=== PATIENT | female | born 1960 | race Caucasian/White ===

== ENCOUNTER 2025-08-12 08:51 | Day surgery (SDC) | payer OTHER, SELFPAY ==
[2025-05-10 11:04] VITALS: BMI 21.3
[2025-08-12 09:09] VITALS: BP 113/81; PULSE 78; RESP 18; TEMP 36.6; O2SAT 100
--- OUTSIDE RECORDS SUMMARY | 2025-08-12 09:13 | XMS_ITS | Clinical Summary ---
Author Organization [facility] Clinical [facility] Address [address] [place] [id number] Care Team Providers Care Veneer Marker Name Role Phone Ann Celeste MD Primary Care Provider + Surgical History Surgery Date Site/Laterality Comments LA DELIVERY ONLY Section - (Added by Conv) Family History Medical History Relation Name Comments Hypertension Father Hypertension - (Added by Conv) Breast cancer Mother Breast Cancer - (Added by Conv) Colon cancer Mother Family history of colon cancer - (Added by Conv) Hypertension Mother Hypertension - (Added by Conv) Relation Name Status Comments Father Mother Social History Tobacco Use Types Packs/Day Years Used Date Smoking Tobacco: Never Comments No Sex and Gender Information Value Date Recorded Sex Assigned at Not on file 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 Gender Identity Not on file Sexual Orientation Not on file Obstetrics History Para Term AB IAB SAB Ectopic Multiple Livin g Live Births 3 3 3 Date Outcome GA Total Labor Labor/2nd/3rd Weight Sex Type Anes PTL Christina A1 A5 Name Clin Term Term Term Last Filed Vital Signs Vital Sign Reading Time Taken Comments Blood Pressure 120/70 02/15/2017 1:18 PM CDT Pulse 60 02/15/2017 1:18 PM CDT Temperature - - Respiratory Rate - - Oxygen Saturation 99% 02/15/2017 1:18 PM CDT Inhaled Oxygen Concentration - - Weight 55.3 kg (122 lb) 04/19/2025 7:30 AM CDT Height 165.1 cm (5' 5) 04/19/2025 7:30 AM CDT Body Mass Index 20.3 04/19/2025 7:30 AM CDT Plan of Treatment Health Maintenance Due Date Last Done Comments Cervical Cancer Screening 1962 Depression Screening 1962 Hepatitis C Screening 1962 Hepatitis B Screening 1980 Regular Well Visit/Exam 18-64 1980 Zoster Vaccine (1 of 2) 2012 DTaP/Tdap/Td Vaccine (2 - Td or Tdap) 08/08/2022 08/08/2012 Colon Cancer Screening-Colonoscopy 07/30/2023 07/30/2013 Covid-19 Vaccine (3 - season) 2025 04/06/2021, 03/16/2021 Influenza Vaccine (#1) 2025 Breast Cancer Screening-Mammogram 04/19/2026 04/19/2025, 11/30/2023, 04/26/2022, Additional history exists Colon Cancer Screening-CT Colonography Discontinued 07/30/2013 Colon Cancer Screening-DNA Stool Discontinued 07/30/2013 Colon Cancer Screening-FIT Discontinued 07/30/2013 Colon Cancer Screening-Sigmoidoscopy Discontinued 07/30/2013 Pneumococcal vaccine <65 Aged Out No longer eligible based on patient's age to complete this topic Procedures Procedure Name Priority Date/Time Associated Diagnosis Comments SCREENING MAMMOGRAM BILATERAL W LEONEL Schedule Routine, Read Routine (OP Routine) 04/19/2025 7:45 AM CDT Screening mammogram, encounter for COLONOSCOPY REPORT 07/30/2013 from Last 3 Months or Most Recently Relevant to Health Maintenance Results * Screening Mammogram Bilateral W Leonel (04/19/2025 7:45 AM CDT) Anatomical Region Laterality Modality Breast Bilateral Mammography Impressions 04/19/2025 8:21 AM CDT Bilateral No evidence of malignancy in either breast. OVERALL BI-RADS FINAL ASSESSMENT: 1 - Negative RECOMMENDATION: Recommend bilateral annual screening mammography. Narrative 04/19/2025 8:21 AM CDT EXAMINATION: Screening Mammogram Bilateral W Leonel: 04/19/2025 COMPARISON: Relevant prior studies available at the time of interpretation were reviewed, including the most recent mammogram on: 11/30/2023. TECHNIQUE: Mammography was performed with 2D and digital breast tomosynthesis (DBT) images. CAD was utilized. BREAST PARENCHYMAL COMPOSITION: The breasts are heterogeneously dense, which may obscure small masses. FINDINGS: Bilateral There is no suspicious mass, calcification, or architectural distortion in either breast. us Self Screening Mammogram IMG MAMMO PROCEDURES Fi nal Result * COLONOSCOPY REPORT (07/30/2013) Anatomical Region Laterality Modality Other Narrative 07/30/2013 Ordered by an unspecified provider. Historical Provider MD GILL PROCEDURE ORDERABLES F inal Result from Last 3 Months or Most Recently Relevant to Health Maintenance Insurance [facility] EPO [facility] CHOICE PLUS Xylo ACCESS OOS Member Subscriber Plan / Payer (Ef fective 2018-Present) Name:Vianey Zapata Relation to Subscriber:Spouse Name:WILLIAM ZAPATA Geraldine Date of :1900 (Home) Address: [address] [place] [address] Payer ID:[id number] (NAIC) Type:[employer] Address: [address] CHOICE PLUS BLUE ACCESS OOS Care Teams Veneer Marker Relationship Specialty Start Date End Date Ann Celeste MD [address] [facility] [address] [place] [address] PCP - General Gynecology 11/30/23
--- OUTSIDE RECORDS SUMMARY | 2025-08-12 09:13 | XMS_ITS | Encounter Summary ---
Author Organization [facility] Address 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
--- OUTSIDE RECORDS SUMMARY | 2025-08-12 09:13 | XMS_ITS | Clinical Summary ---
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 Gender Identity Not on file Sexual Orientation Not on file Plan of Treatment Health Maintenance Due Date Last Done Comments Hepatitis C Virus (HCV) Screening 1962 Pap Smear 1983 Cervical Cancer Screening (CCS) 1992 HPV/Cotest 1992 Cologuard 2007 Colonoscopy 2007 Colorectal Cancer Screening 2007 Immunochemical Fecal Occult Blood 2007 Pneumococcal Immunization (5 0+ years) (1 of 1 - PCV) 2012 Zoster Immunization (1 of 2) 2012 Influenza Immunization (#1) 2025 SARS-COV-2 Immunization ( - 2023- season) 2025 Respiratory Syncytial Virus (RSV) Immunization (Adult) (1 - 1-dose 75+ series) 2037 DTaP/Tdap/Td Immunization Discontinued 08/08/2012 TdaP Immunization Completed 08/08/2012 Hepatitis B Immunization Aged Out No longer eligible based on patient's age to complete this topic Human Papillomavirus (HPV) Immunization Aged Out No longer eligible b ased on patient's age to complete this topic Meningococcal Immunization (ACWY) Aged Out No longer eligible based on patient's age to complete this topic Rotavirus Immunization Aged Out No lo nger eligible based on patient's age to complete this topic
--- OUTSIDE RECORDS SUMMARY | 2025-08-12 09:13 | XMS_ITS | Clinical Summary ---
Author Organization [facility] Address [address] [place] [address] Phone Care Team Providers Care Precision Inspector Name Role Phone Harshal Posey MD Primary Care Provider +1- [phone] Family History Medical History Relation Name Comments Breast Cancer Mother post mp? 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 Gender Identity Not on file Sexual Orientation Not on file Occupation Industry Job Start Date Job End Date Not on file Not on file Not on file Not on file Plan of Treatment Health Maintenance Due Date Last Done Comments DTAP/TDAP/TD VACCINES (1 - Tdap) 1981 HPV/Cotest (21-29) 1983 CERVICAL CANCER SCREENING 1992 HPV/Cotest (30-65) 1992 PAP SMEAR 1992 COLORECTAL SCREENING 2007 Colorectal Cancer Screening 2007 FIT-DNA Q 3 years 2007 FIT/FOBT Q 1 year 2007 Flex Sig/CT Colonography Q 5 years 2007 ZOSTER VACCINE (1 of 2) 2012 BREAST CANCER SCREENING 06/23/2016 06/23/20 15, 06/04/2014, 12/11/2012, Additional history exists INFLUENZA VACCINE (#1) 2025 RSV VACCINE (60+ or ) (1 - 1-dose 75+ series) 2037 Procedures Procedure Name Priority Date/Time Associated Diagnosis Comments MAMMO SCREEN BILAT W OR WO CAD Routine 06/23/2015 12:09 PM CDT Other screening mammogram from Last 3 Months or Most Recently Relevant to Health Maintenance Results * MAMMO DIGITAL SCREEN BILAT (06/23/2015 12:09 PM CDT) Anatomical Region Laterality Modality Breast Bilateral Mammography Narrative 06/23/2015 1:31 PM CDT Bilateral digital screening mammogram with computer assisted diagnosis History: Annual screening exam. Findings: A bilateral screening mammogram was performed. Comparison is made to : 06/04/2014, 12/11/2012, 11/17/2011 The breast parenchyma is heterogeneously dense which can obscure small masses. No new masses, suspicious calcifications, or areas of asymmetry or distortion are identified. CAD was utilized. Impression: Negative screening mammogram. Recommendation: Routine annual follow-up Overall Assessment: Birads Category 1: Negative us Dat Luque MD MAMMO ORDERABLES Final Result from Last 3 Months or Most Recently Relevant to Health Maintenance Insurance [facility] BLUE ACCESS/TRUE BLUE PPO Care Teams Precision Inspector Relationship Specialty Start Date End Date Harshal Posey MD [address] [place] [address] DR Elsa CARY [address] [place] [id number] PCP - General Internal Medicine 06/04/14
[2025-08-12] MEDS: LACTATED RINGERS 1,000 ML 150 ML IV CONT (09:21)
--- NOTE | 2025-08-12 10:23 | WPDANESEPPF ---
Anes - Initial Pre Proc Eval Procedure: Operation Date: 08/12/25 10:30 Proposed Procedures p Screening Colonoscopy - Dangelo Jefferson DO Date/Time: 08/12/25 10:23 Surgeon: Dangelo Jefferson DO Pre Op Diagnosis: Neoplasm Screening Patient Data Age: 65 Gender: F Height: 1.66 m Weight: 57.9 kg Last Vital Signs Temp 97.9 F 08/12/25 09:09 Pulse 78 08/12/25 09:09 Resp 18 08/12/25 09:09 BP 113/81 08/12/25 09:09 Pulse Ox 100 08/12/25 09:09 O2 Del Method Room Air 08/12/25 09:09 Allergies Allergy/AdvReac Type Severity Reaction Status Date / Time No Known Allergies Allergy Mild Verified 08/12/25 09:08 Home Medications ?Medication ?Instructions ?Recorded ?Confirmed ?Type cholecalciferol (vitamin D3) 25 25 mcg PO DAILY 12/23/22 08/12/25 History mcg (1,000 unit) capsule fshnvlzbkkgs-iwypcahj-shhwms 1 tablet PO DAILY 12/23/22 08/12/25 History tablet (Multivitamin 50 Plus tablet) vitamin B comp and C no.3 15 mg-10 1 cap PO DAILY 12/23/22 08/12/25 History mg-50 mg-5 mg-300 mg capsule (B Complex Plus Vitamin C) estradiol 0.25 mg/0.25 gram (0.1 1 packet transdermal DAILY 05/07/25 08/12/25 History %) transdermal gel packet progesterone micronized 200 mg 200 mg PO QHS 05/07/25 08/12/25 History capsule testosterone 12.5 mg/1.25 gram per 1 pump transdermal DAILY 05/07/25 08/12/25 History pump actuation (1%) transdermal gel (Vogelxo) Patient hx anesthesia problems: none Family hx anesthesia problems: none Results Review: All pre-operative results and documents have been reviewed as part of the pre-operative evaluation. [facility] Past Medical History Medical History Testosterone deficiency Osteoporosis Vitamin D deficiency Screening for lipid disorders Surgical History Surgical History History of Family History Family History Mother Hypertension High cholesterol Breast cancer Carcinoma of colon Father High cholesterol Hypertension Sibling No problems noted. 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 Gender identity (if verbalized by the patient): Female Spiritual care concerns: No Anes - Eval Final PreProcedure Day of Procedure 08/12/25 10:23 Heart: regular rate and rhythm Lungs: clear to auscultation Airway: Mallampati scale class 1 Neurological: alert and oriented Last oral intake: >/= 8 hours ASA classification: II Anesthetic plan: proceed Anesthesia type and monitoring: monitored anesthesia care Results Review: All pre-operative results and documents have been reviewed as part of the pre-operative evaluation. Informed Consent: The patient's anesthetic plan and its attendant risks and benefits were discussed with the patient/family/POA. Questions were solicited and answers provided to the satisfaction of the patient/family/POA.
--- NOTE | 2025-08-12 10:25 | WPDANESPN ---
Anes - Prog Note Post-Op Date/Time: 08/12/25 10:25 Vital Signs: Last Vital Signs Temp 97.9 F 08/12/25 09:09 Pulse 78 08/12/25 09:09 Resp 18 08/12/25 09:09 BP 113/81 08/12/25 09:09 Pulse Ox 100 08/12/25 09:09 O2 Del Method Room Air 08/12/25 09:09 Pain Score (VAS): NO Patient Feedback: Patient satisfied with anesthetic care.
--- NOTE | 2025-08-12 10:30 | PM.IMHP ---
H&P: HPI History of Present Illness Date/Time: 08/12/25 10:30 Chief Complaint: fam hx colon cancer Narrative: 65 yo woman presents for colonoscopy. Last done 5 years ago. +fam hx colon cancer in her mother. Denies hematochezia or melena. Review of Systems Review of Systems: All systems reviewed & are unremarkable except as noted in HPI and below Constitutional: Constitutional: Denies chills, Denies fever(s), Denies headache(s) and Denies weight loss Eyes: Eyes: Denies change in vision ENT: Denies dizziness, Denies headache(s), Denies neck mass and Denies throat swelling Cardiovascular: Cardiovascular: Denies chest pain, Denies lightheadedness and Denies dyspnea Respiratory: Respiratory: Denies cough, Denies dyspnea and Denies wheezing Gastrointestinal: Gastrointestinal: Denies abdominal pain, Denies change in bowel habits, Denies nausea and Denies vomiting Genitourinary: Genitourinary: Denies hematuria and Denies dysuria Musculoskeletal: Musculoskeletal: Reports as per HPI Integumentary/Breasts: Skin/Breast: Reports as per HPI Neurologic: Denies dizziness and Denies headache(s) Allergic/Immunologic: Allergic/Immunologic: Denies throat swelling and Denies wheezing PMF Past Medical History Medical History Testosterone deficiency Osteoporosis Vitamin D deficiency Screening for lipid disorders Surgical History Surgical History History of Family History Family History Mother Hypertension High cholesterol Breast cancer Carcinoma of colon Father High cholesterol Hypertension Sibling No problems noted. 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 Gender identity (if verbalized by the patient): Female Spiritual care concerns: No Meds Home Medications and Allergies Home Medications ?Medication ?Instructions ?Recorded ?Confirmed ?Type cholecalciferol (vitamin D3) 25 25 mcg PO DAILY 12/23/22 08/12/25 History mcg (1,000 unit) capsule [id number]-lxbjkoog-oywhsd 1 tablet PO DAILY 12/23/22 08/12/25 History tablet (Multivitamin 50 Plus tablet) vitamin B comp and C no.3 15 mg-10 1 cap PO DAILY 12/23/22 08/12/25 History mg-50 mg-5 mg-300 mg capsule (B Complex Plus Vitamin C) estradiol 0.25 mg/0.25 gram (0.1 1 packet transdermal DAILY 05/07/25 08/12/25 History %) transdermal gel packet progesterone micronized 200 mg 200 mg PO QHS 05/07/25 08/12/25 History capsule testosterone 12.5 mg/1.25 gram per 1 pump transdermal DAILY 05/07/25 08/12/25 History pump actuation (1%) transdermal gel (Vogelxo) Allergies Allergy/AdvReac Type Severity Reaction Status Date / Time No Known Allergies Allergy Mild Verified 08/12/25 09:08 Vital Signs Vital Signs - 24 hr 08/12/25 09:09 Temperature 97.9 F Pulse Rate 78 Respiratory Rate 18 Blood Pressure 113/81 Pulse Oximetry 100 Oxygen Delivery Room Air Exam Const: General: no acute distress and alert Orientation/consciousness: patient oriented x3 HENMT: Head: normocephalic and atraumatic Ears: hearing grossly normal bilaterally Face/Nose/Sinus: Normal nares present Mouth: Yes Normal oral and palatal mucosa present Eyes: Periorbital: periorbital findings normal Sclera: sclerae normal EOM: EOMs intact bilaterally Neck: Neck: normal visual inspection, no lymphadenopathy and trachea midline Chest: Chest palpation & inspection: normal inspection of the chest Resp: Effort & Inspection: normal respiratory effort Auscultation: clear to auscultation bilaterally Cardio: Jugular venous distension: no JVD Rate: regular rate Rhythm: regular rhythm Heart sounds: S1 normal heart sound present and S2 normal heart sound present Peripheral pulses: Peripheral pulses 2+ throughout GI: Inspection: normal to inspection GI Palp: Yes Soft to palpation, No Tenderness to palpation present (GI), No Guarding due to palpation present (GI) and No Rebound tenderness present Percussion: Yes normal to percussion Auscultation: normal bowel sounds : General: Yes no CVA tenderness Back/Spine/Pelvis: Back: no CVA tenderness Neuro: General: patient oriented x3, no focal motor deficits and CN's II-XI intact bilaterally Cognition (Neuro): normal cognition Speech: normal speech Motor exam (neuro): 5/5 motor strength present throughout Extrem: General: capillary refill normal and no clubbing, cyanosis or edema Assessment and Plan Assessment and plan (1) Family hx of colon cancer: Code(s): Z80.0 - Family history of malignant neoplasm of digestive organs Status: Acute Assessment and Plan: I have recommended colonoscopy. I have discussed the procedure, risks, benefits, and alternatives. Questions were answered. Patient is agreeable to proceed.
[2025-08-12 11:06] VITALS: BP 101/62; PULSE 72; RESP 12; O2SAT 100
[2025-08-12 11:16] VITALS: BP 110/60; PULSE 61; RESP 16; O2SAT 100
[2025-08-12 11:26] VITALS: BP 120/76; PULSE 60; RESP 18; O2SAT 100
== END 2025-08-12 11:45 | disposition home or self-care (01) ==
PROVIDERS: PCP Family Medicine; Visit Provider Surgery
PROC: 0DJD8ZZ Inspection of Lower Intestinal Tract, Via Natural or Artificial Opening Endoscopic (ICD-10-PCS; CPT 45378; principal; 2025-08-12 10:30)
DX: Z12.11 Encounter for screening for malignant neoplasm of colon (principal); K64.8 Other hemorrhoids; Z80.0 Family history of malignant neoplasm of digestive organs
CPT/HCPCS: 45378